=== PATIENT | female | born 1955 | race Caucasian/White ===

== ENCOUNTER → 2016-10-17 | Outpatient (CLI) | payer OTHER ==
[~2016-10-17] MED LIST: ASPIR-LOW81 MG PO; BRILINTA90 MG PO; CIPRO500 MG PO; CLARITIN10 M2 PO; DICYCLOMINE HCL10 MG PO; GLUCOPHAGE 500500 MG PO; HABITROL 21 MG P1 EA TD; IMDUR ER TAB 3030 MG PO; IMDUR ER TAB 6060 MG PO; INVOKAMET 150-1 EACH PO; KLONOPIN TAB 00.5 MG PO; LEVEMIR FL100 UNIT/1 SQ; LIPITOR TAB 2020 MG PO; LISINOPRIL2.5 MG PO; LISINOPRIL5 MG PO; MAGNESIUM400 MG PO; MELATONIN5 MG PO; METOPROLOL SUCC50 MG PO; METOPROLOL TART25 MG PO; MIRALAX PACK 171 PKT PO; MIRAPEX0.25 MG PO; NEURONTIN 300300 MG PO; NEURONTIN 400400 MG PO; NORVASC 5 MG TAB5 MG PO; NOVOLOG FL100 UNIT/1 SQ; OXYCODONE-ACET1 EACH PO; PREMARIN0.9 MG PO; PROTONIX 40 MG40 M1 PO; PROVENTIL HFA 61 INH INH; RANEXA500 MG PO; ROPINIROLE HCL0.5 MG PO; SPIRONOLACTONE25 MG PO; SYNTHROID125 MCG PO; TRESIBA FLEXTOUCH SQ
== END ==
LOC: KOH-I 15:53
DX: J41.1 Mucopurulent chronic bronchitis (principal)
CPT/HCPCS: 71020

== ENCOUNTER → 2021-03-28 | Outpatient (CLI) | payer OTHER ==
[~2021-03-28] MED LIST changes: +ADMELOG SO100 UNIT/1 SQ; +CEFUROXIME500 MG PO; +LOPID TAB 600600 MG PO; +NASALIDE INH SO25 ML; +NITROSTAT0.4 MG SL; +PANTOPRAZOLE SO40 MG PO; +PRINIVIL5 MG PO; +PYRIDIUM200 MG PO; +TRENTAL 400 MG400 MG PO; +TRESIBA FL100 UNIT/1 SQ; +ULTRAM50 MG PO; +ZOFRAN4 MG PO
== END ==
LOC: KOH-I 08:51
DX: M54.5 Low back pain (principal); M51.37 Other intervertebral disc degeneration, lumbosacral region; M25.562 Pain in left knee; M19.041 Primary osteoarthritis, right hand; M19.042 Primary osteoarthritis, left hand; M47.816 Spondylosis without myelopathy or radiculopathy, lumbar region; M51.36 Other intervertebral disc degeneration, lumbar region
CPT/HCPCS: 72110; 73130; 73502; 73562

== ENCOUNTER 2021-04-03 11:26 | Emergency (ER) | payer OTHER ==
[2021-04-03 13:21] LABS: HEMOGLOBIN 15.5 gm/dl (12.3-15.3); RED BLOOD COUNT 4.99 M/UL (4.00-5.10); WHITE BLOOD COUNT 7.7 K/UL (4.5-11.0)
[2021-04-03 13:40] LABS: BUN/CREATININE RATIO 13 (0-10)
== END 2021-04-03 13:00 | disposition left against medical advice (07) ==
LOC: ER1 11:26
DX: R07.9 Chest pain, unspecified (principal); E11.9 Type 2 diabetes mellitus without complications; K21.9 Gastro-esophageal reflux disease without esophagitis; J44.9 Chronic obstructive pulmonary disease, unspecified; Z90.49 Acquired absence of other specified parts of digestive tract; Z90.89 Acquired absence of other organs; Z90.710 Acquired absence of both cervix and uterus; F17.210 Nicotine dependence, cigarettes, uncomplicated
CPT/HCPCS: 71045; 80053; 82550; 82553; 83874; 84484; 85025; 93005; 99281; 99285

== ENCOUNTER → 2021-05-03 | Outpatient (CLI) | payer MEDICARE, OTHER | LOC: HEART 5 04-23 09:00 | DX: I25.119 Atherosclerotic heart disease of native coronary artery with unspecified angina pectoris (principal) | CPT/HCPCS: 78452; 93306; A9502; J2785 ==